=== PATIENT | female | born 1940 | race Caucasian/White ===

== ENCOUNTER 2016-10-24 08:00 | Outpatient (CLI) | payer MEDICARE, OTHER | END 2016-10-24 08:01 | disposition home or self-care (01) | DX: L30.9 Dermatitis, unspecified (principal) ==

== ENCOUNTER 2016-10-25 08:00 | Outpatient (CLI) | payer MEDICARE, OTHER | END 2016-10-25 23:59 | LOC: LAB.R 08:00 | PROVIDERS: ATTEND Physician Assistant | DX: R10.9 Unspecified abdominal pain (principal) | CPT/HCPCS: 87177; 87209 ==

== ENCOUNTER 2016-10-29 07:45 | Outpatient (CLI) | payer MEDICARE, OTHER | END 2016-10-29 07:46 | disposition home or self-care (01) | DX: L30.9 Dermatitis, unspecified (principal); R10.9 Unspecified abdominal pain ==

== ENCOUNTER 2017-12-18 19:33 | Outpatient (CLI) | payer MEDICARE, OTHER | END 2017-12-18 19:34 | disposition critical access hospital (66) | LOC: EMS 19:33 | PROVIDERS: ATTEND Surgery | DX: M25.532 Pain in left wrist (principal); W01.10XA Fall on same level from slipping, tripping and stumbling with subsequent striking against unspecified object, initial encounter | CPT/HCPCS: A0425; A0429 ==

== ENCOUNTER 2017-12-18 19:55 | Emergency (ER) | payer MEDICARE, OTHER ==
[2017-12-18 19:56] VITALS: BP 152/97
--- NOTE | 2017-12-18 20:52 | XRAY Report ---
Procedure Date: 12/18/2017 Accession Number: [id number] / [id number] Procedure: XR - Wrist 4 View LT CPT Code: FULL RESULT: EXAM: LEFT WRIST RADIOGRAPHY EXAM DATE: 12/18/2017 08:28 PM. CLINICAL HISTORY: Fall. COMPARISON: None. TECHNIQUE: 3 views. FINDINGS: Bones: Acute mildly displaced ulna styloid fracture. There is a comminuted impacted intra-articular fracture of the distal left radius metaphysis with 4 mm of lateral and 3 mm of dorsal displacement and mild dorsal angulation. Joints: Normal. No subluxations. Soft Tissues: Large amount of wrist swelling. IMPRESSION: 1. Acute impacted intra-articular and displaced fracture of the distal left radius metaphysis with 3 mm of dorsal and 4 mm lateral displacement and mild dorsal angulation. 2. Mildly displaced left ulna styloid fracture. 3. No dislocation. Large amount of swelling. RADIA
[2017-12-18] MEDS ORDERED: oxyCOD/ACETAMIN 5 MG/325 MG TABLET PO STA (20:55)
[2017-12-18] MEDS ORDERED: oxyCODONE/ACET 5/325 Prepack 4 PO STA (21:03)
--- NOTE | 2017-12-18 21:05 | ED Physician Documentation ---
PD HPI UPPER EXT INJURY - Stated complaint Stated Complaint: FALL/WRIST DEFORMITY - Chief complaint Chief Complaint: Ext Problem - History obtained from History obtained from: Patient - History of Present Illness Location: Left, Wrist Type of injury: Fall Where injury occurred: Home Timing - onset: Today Timing - details: Abrupt onset Improved by: Ice, Immobilization Worsened by: Moving, Palpating Similar symptoms before: Has not had sx before Recently seen: Not recently seen - Additonal information Additional information: Patient is a 77 year old female who is presenting to the emergency department for left wrist pain. patient states that her son was locked out of a house and she was trying to climb into a window and she fell and she blocked herself with her wrist. 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 : None HEENT: None Psych: None Musculoskeletal: None Derm: None - Past Surgical History Past Surgical History: No - Present Medications Home Medications: Ambulatory Orders Medication Instructions Recorded Confirmed Oxycodone HCl/Acetaminophen 1 - 2 each PO Q6H PRN #10 tablet 12/18/17 [Percocet 5-325 mg Tablet] - Allergies Allergies/Adverse Reactions: Allergies Allergy/AdvReac Type Severity Reaction Status Date / Time No Known Drug Allergies Allergy Verified 12/18/17 19:56 - Social History Does the pt smoke?: No Smoking Status: Never smoker Does the pt drink ETOH?: No Does the pt have substance abuse?: No - Immunizations Immunizations are current?: Yes PD ED PE NORMAL - Vitals Vital signs reviewed: Yes - General General: Alert and oriented X 3 - HEENT HEENT: Atraumatic - Cardiac Cardiac: RRR - Respiratory Respiratory: No respiratory distress - Abdomen Abdomen: Non distended - Neuro Neuro: Alert and oriented X 3 Eye Opening: Spontaneous PD ED PE EXPANDED - General General: Alert, In Pain - Cardiac Cardiac: Radial strong equal - Extremities Extremities: Left wrist (tenderness and swelling of distal wrist on lateral posterior region), Motor intact, Sensory intact, Vascular intact, Tendon intact Results - Vitals Vitals: Vital Signs - 24 hr 12/18/17 19:52 Temperature 37.5 C Heart Rate 107 H Respiratory 20 Rate Blood Pressure 152/97 H O2 Saturation 97 Oxygen O2 Source Room air - Rads (name of study) left wrist Radiology: Final report received, EMP read contemporaneously (mildly displaced distal radial fracture) PD MEDICAL DECISION MAKING - ED course Complexity details: reviewed old records, reviewed results, re-evaluated patient , considered differential, d/w patient, 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 patient had already been for imaging. results were reviewed and were consistent with a distal radial fracture. Case was discussed with Dr. Mendoza who stated patient should be placed in a splint and follow up in the office. Patient was treated with percocet for pain and placed in a volar splint. Patient was neurovascularly intact. patient required no further work up at this time and was stable for discharge with outpatient follow up. - Sepsis Event Vital Signs: Vital Signs - 24 hr 12/18/17 19:52 Temperature 37.5 C Heart Rate 107 H Respiratory 20 Rate Blood Pressure 152/97 H O2 Saturation 97 Oxygen O2 Source Room air Departure - Departure Disposition: 01 Home, Self Care Clinical Impression: Distal radial fracture Condition: Good Instructions: ED Fx Upper Ext Follow-Up: Ana Mendoza MD [Provider Admit Priv/Credential] - Tomorrow Prescriptions: Oxycodone HCl/Acetaminophen [Percocet 5-325 mg Tablet] 1 - 2 each PO Q6H PRN # 10 tablet PRN Reason: pain Comments: Your symptoms today are being caused by a wrist fracture. It has been placed in a splint. you will need to call the orthopedic office tomorrow to schedule a follow up appointment. you should ice your wrist at least 4 times a day. You should try to sleep with your wrist elevated. You should return to the emergency department for loss of feeling, loss of pulses, new worsening or uncontrollable symptoms. Discharge Date/Time: 12/18/17 21:28
== END 2017-12-18 21:28 | disposition home or self-care (01) ==
LOC: ED 19:55
DX: S52.92XA Unspecified fracture of left forearm, initial encounter for closed fracture (principal); W18.30XA Fall on same level, unspecified, initial encounter
CPT/HCPCS: 73110; 99283; A9270

== ENCOUNTER 2017-12-29 12:19 | Outpatient (CLI) | payer MEDICARE, OTHER | END 2017-12-29 12:20 | disposition home or self-care (01) | LOC: LAB 12:19 | PROVIDERS: ATTEND Orthopaedic Surgery | DX: Z01.812 Encounter for preprocedural laboratory examination (principal); S52.502A Unspecified fracture of the lower end of left radius, initial encounter for closed fracture | CPT/HCPCS: 87640 ==

== ENCOUNTER 2017-12-30 07:07 | Day surgery (SDC) | payer MEDICARE, OTHER ==
[2017-12-30] MEDS ORDERED: LACTATED RINGERS 1,000 ML IV ONE (07:25)
[2017-12-30] MEDS ORDERED: ceFAZolin 2 GM/50 ML 2 GM/50 ML BAG IV ONE (07:33)
[2017-12-30] MEDS ORDERED: PROPOFOL 200 MG/20 ML VIAL IVP ONE (08:45)
[2017-12-30] MEDS ORDERED: fentaNYL 100 MCG/2 ML VIAL IVP ONE (08:45)
[2017-12-30] MEDS ORDERED: MIDAZOLAM 2 MG/2 ML VIAL IVP ONE (08:45)
[2017-12-30] MEDS ORDERED: ROPIVACAINE 0.5% PF 20 ML VIAL EPI ONE (08:45)
[2017-12-30] MEDS ORDERED: DEXAMETHASONE 4 MG/ML VIAL IVP ONE (08:45)
[2017-12-30 11:54] VITALS: BP 173/102
--- NOTE | 2017-12-30 12:20 | OPERATIVE REPORT ---
DATE OF SERVICE: 12/30/2017 Physician: Ana Mendoza MD PREOPERATIVE DIAGNOSIS: Left distal radius closed comminuted intra-articular fracture with 3 predominant fracture fragments. POSTOPERATIVE DIAGNOSIS: Left distal radius closed comminuted intraarticular fracture with 3 predominant fracture fragments. PROCEDURE PERFORMED: Open reduction, internal fixation of left distal radial fracture. OPERATING SURGEON: Ana Mendoza MD ANESTHESIA: Julien Weinstein, an interscalene block with sedation. INDICATIONS FOR SURGERY: The patient is a 77-year-old female who sustained a ground level fall onto an outstretched left arm, causing an angulated unstable closed distal radial fracture with predominantly 3 fragments of the distal radius, and recommendation is for surgical repair by open reduction and internal fixation. FINDINGS AT SURGERY: The patient's fragmentation was confirmed at open surgery. The reduction achieved was near anatomic, and plate fixation was solid, with careful avoidance of screw overpenetration or penetration into the joint. DESCRIPTION OF OPERATIVE PROCEDURE: The patient was taken to the operating room. The patient had been given an interscalene block in PACU. Proceeded to the operating room where some sedation was given. She was prepared for surgery with sterile prepping and draping of the left upper extremity. After surgical timeout, C-arm was moved into position and the fracture was reduced. Once it was confirmed that reduction was a fairly easy maneuver to achieve, the open surgery proceeded with a volar radial 3-1/2 inch wrist incision overlying the flexor carpi radialis with dissection below the base of this tendon, down to fibers of pronator quadratus, which were elevated off the radius, exposing the distal radius and directly reducing it with application of a DVR Biomet plate. This was affixed to the distal radius through the oblong hole with a screw and positioned in place with a K-wire distally. Once a good reduction and alignment and position of plate were achieved, the locking screws were placed in the plate starting at the proximal shaft of the radius and then distally. Adequate fixation was gained, and it was very stable. C-arm imaging had been done throughout the case to ensure that the screws were in proper placement and length. Finally, at the end, the wound was flushed well. All the drill caps have been removed from the drill holes, and the closure was undertaken with interrupted Vicryl in the pronator quadratus, interrupted Vicryl subcutaneous, and Monocryl closure of skin. Sterile dressings were applied. The patient was placed in a well-padded below-elbow fiberglass splint, and taken to recovery room in stable condition. ESTIMATED BLOOD LOSS: Minimal. COMPLICATIONS: None. COUNTS: Sponge and needle counts correct. TD: 12/30/2017 11:09
== END 2017-12-30 07:08 | disposition home or self-care (01) ==
LOC: SDS 07:07
PROVIDERS: ATTEND Orthopaedic Surgery
PROC: 0PSJ04Z Reposition Left Radius with Internal Fixation Device, Open Approach (ICD-10-PCS; principal; 2017-12-30 08:15)
DX: S52.532A Colles' fracture of left radius, initial encounter for closed fracture (principal); Z86.14 Personal history of Methicillin resistant Staphylococcus aureus infection
CPT/HCPCS: 25609; C1713; J0690; J2795; J7120

== ENCOUNTER 2019-09-22 13:56 | Emergency (ER) | payer MEDICARE, OTHER ==
--- NOTE | 2019-09-22 14:06 | ED Physician Documentation ---
History of Present Illness - Stated complaint Stated Complaint: FINGER LAC - Chief complaint Chief Complaint: Laceration - History obtained from History obtained from: Patient - Additonal information Additional information: Patient is 78-year-old female is here today with a left Re-finger laceration. She states this happened at home. She had a mechanical fall and struck her finger against a car battery. She denies any further finger, hand, wrist, or elbow pain. She has full range of motion of her extremity without any gross deformities. She suffered 2 isolated lacerations at the fat pad of her left ring finger. She has full range of motion of her affected finger. Sensation is intact. She does not recall her last tetanus shot. Review of Systems Eyes: denies: Decreased vision Cardiac: denies: Chest pain / pressure Respiratory: denies: Dyspnea GI: denies: Abdominal Pain, Nausea, Vomiting Skin: reports: Laceration (s) Musculoskeletal: reports: Extremity pain, Other (see HPI). 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 : None HEENT: None Psych: None Musculoskeletal: None Derm: None - Past Surgical History Past Surgical History: No - Present Medications Home Medications: Ambulatory Orders Medication Instructions Recorded Confirmed Oxycodone HCl/Acetaminophen 1 - 2 each PO Q6H PRN #10 tablet 12/18/17 12/29/17 [Percocet 5-325 mg Tablet] - Allergies Allergies/Adverse Reactions: Allergies Allergy/AdvReac Type Severity Reaction Status Date / Time No Known Drug Allergies Allergy Verified 09/22/19 13:59 - Social History Does the pt smoke?: No Smoking Status: Never smoker Does the pt drink ETOH?: No Does the pt have substance abuse?: No - Immunizations Immunizations are current?: Yes PD ED PE NORMAL - Vitals Vital signs reviewed: Yes - General General: Alert and oriented X 3, No acute distress, Well developed/nourished - Back Back: Other (full range of motion. ) - Extremities Extremities: No deformity, Normal ROM s pain, Other (There are 2 lacerations located at the fat pad of the left ring finger. The proximal laceration is jagged and is approximately 2.5 cm. The distal laceration is approximately 0.5 cm in). No: No edema - Neuro Neuro: Alert and oriented X 3, No motor deficit, No sensory deficit Motor: None (He has full range of motion is able to form a symmetrical fist. No scaphoid tenderness.) Results - Vitals Vitals: Vital Signs - 24 hr 09/22/19 13:59 Temperature 36.4 C L Heart Rate 98 Respiratory 18 Rate Blood Pressure 190/87 H O2 Saturation 99 Oxygen O2 Source Room air Procedures - Laceration (location) Finger Complexity: Other (Wound was infiltrated with 1% lidocaine. The proximal wound was approximated with number six 5-0 nylon simple and ruptured sutures. The distal wound was approximated with 2, 5-0 simple interrupted sutures. Wound care was discussed. Patient tolerated this procedure well without any immediate complication.) PD MEDICAL DECISION MAKING - ED course Complexity details: other (Patient had symptomatic provement after wound was closed. We discussed care. She will have her sutures removed in 10 to 14 days. Seek care sooner for signs and symptoms of infection as needed.) Departure - Departure Disposition: 01 Home, Self Care Clinical Impression: Laceration Instructions: ED Laceration Sure Close Comments: Keep your wound clean with soap and water. Keep your wound dry for the initial 24 hours. You may apply an qens-fli-asmdryt antibiotic ointment such as bacitracin. Monitor wound for signs and symptoms of infection. Seek care if you develop any increased redness, warmth, pain, foul odor, or discharge. Otherwise have your sutures removed in 10 to 14 days.
[2019-09-22] MEDS ORDERED: TETANUS/DIPHTHERIA/PERTUSSIS 0.5 ML SYRINGE IM ONE (14:10)
[2019-09-22] MEDS ORDERED: BUFFERED LIDOCAINE 10 ML SYRINGE SUBQ STA (14:11)
[2019-09-22] MEDS ORDERED: BACITRACIN ZINC OINT 1 PACKET TOP STA (14:39)
[2019-09-22 14:55] VITALS: BP 164/77
== END 2019-09-22 14:58 | disposition home or self-care (01) ==
LOC: ED 13:56
DX: S61.215A Laceration without foreign body of left ring finger without damage to nail, initial encounter (principal); W19.XXXA Unspecified fall, initial encounter; W22.09XA Striking against other stationary object, initial encounter; Y93.E8 Activity, other personal hygiene
CPT/HCPCS: 12001; 90471; 90715; 99283; A9270

== ENCOUNTER 2019-10-01 10:22 | Emergency (ER) | payer MEDICARE, OTHER ==
[2019-10-01 10:31] VITALS: BP 146/70
--- NOTE | 2019-10-01 10:52 | ED Physician Documentation ---
PD HPI WOUND RECHECK - Stated complaint Stated Complaint: L STITCHES REMOVAL - Chief complaint Chief Complaint: Laceration - Histroy obtained from History obtained from: Patient - History of Present Illness Location: Left Hand (ring finger) Timing - onset: How many days ago (10) Associated symptoms: No: Fever, Redness, Swelling Recently seen: Emergency Dept (sutures 10 days ago) Review of Systems Constitutional: denies: Fever, Chills Neurologic: denies: Focal weakness, Numbness PD PAST MEDICAL HISTORY - Past Medical History Cardiovascular: None Respiratory: None Neuro: None Endocrine/Autoimmune: None GI: None 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 : None HEENT: None Psych: None Musculoskeletal: None Derm: None - Past Surgical History Past Surgical History: No Ortho: Other - Present Medications Home Medications: Ambulatory Orders Medication Instructions Recorded Confirmed No Known Home Medications 10/01/19 10/01/19 - Allergies Allergies/Adverse Reactions: Allergies Allergy/AdvReac Type Severity Reaction Status Date / Time No Known Drug Allergies Allergy Verified 10/01/19 10:31 - Social History Does the pt smoke?: No Smoking Status: Never smoker Does the pt drink ETOH?: No Does the pt have substance abuse?: No - Immunizations Immunizations are current?: Yes Immunizations: TDAP >10years/unknown - POLST Patient has POLST: No PD ED PE NORMAL - Vitals Vital signs reviewed: Yes - General General: Alert and oriented X 3, No acute distress, Well developed/nourished - Derm Derm: Normal color, Warm and dry - Extremities Extremities: Other (left index finger lac healing without signs of infection. some sppearance of thin skin at point of the V of the lac. Still looks likely viable.) Results - Vitals Vitals: Vital Signs - 24 hr 10/01/19 10:29 Temperature 36.8 C Heart Rate 88 Respiratory 16 Rate Blood Pressure 146/70 H O2 Saturation 100 Oxygen O2 Source Room air PD MEDICAL DECISION MAKING - ED course Complexity details: considered differential, d/w patient Departure - Departure Disposition: 01 Home, Self Care Clinical Impression: Visit for suture removal Condition: Stable Record reviewed to determine appropriate education?: Yes Comments: Allow the Steri-Strips to stay in place and dry for the next several days until they fall off. Then resume the normal ointment until the area is fully healed which may still be another week or 2. Recheck if signs of infection or other problems. Discharge Date/Time: 10/01/19 11:10
== END 2019-10-01 11:10 | disposition home or self-care (01) ==
LOC: ED 10:22
DX: S61.211D Laceration without foreign body of left index finger without damage to nail, subsequent encounter (principal); Z48.02 Encounter for removal of sutures
CPT/HCPCS: 99282

== ENCOUNTER 2023-03-26 08:45 | Outpatient (CLI) | payer MEDICARE, OTHER | END 2023-03-26 09:00 | disposition home or self-care (01) | LOC: LAB.N 08:45 | PROVIDERS: ATTEND Registered Nurse | DX: R30.0 Dysuria (principal) | CPT/HCPCS: 87086; 87181 ==

== ENCOUNTER 2023-03-27 08:57 | Emergency (ER) | payer MEDICARE, OTHER ==
[2023-03-27 09:12] VITALS: BP 173/84; O2SAT 97
--- NOTE | 2023-03-27 09:52 | XRAY Report ---
PROCEDURE: Toe(s) LT INDICATIONS: 1st toe pain TECHNIQUE: 3 views of the first toe(s) acquired. COMPARISON: None. FINDINGS: Bones: No fractures or dislocations. No suspicious bony lesions. Soft tissues: No suspicious soft tissue densities. IMPRESSION: No visualized acute fracture or dislocation. However, occult injury cannot be excluded. Recommend joe rt interval imaging follow-up in 7-10 days as clinically indicated for additional evaluation. Reviewed by: Sophia Huff MD on 03/27/2023 9:51 AM PDT Approved by: Sophia Huff MD on 03/27/2023 9:51 AM PDT Station ID: [id number]
--- NOTE | 2023-03-27 10:12 | ED Physician Documentation ---
PD HPI LOWER EXT INJURY - Stated complaint Stated Complaint: LT TOE INJ - Chief complaint Chief Complaint: Ext Problem - History obtained from History obtained from: Patient - Additional information Additional information: Patient is an 82-year-old female presenting for evaluation of left great toe pain for the past 2 days. She recalls hitting it against a plastic tote in December and reports part of the nail falling off at that time. Has since been regrowing. Reports some increased pain since last night but currently denies any significant pain other than when her shoes are on. She is currently on a cefdinir for urinary tract infection has also been on this for the past 2 days. She denies worsening of the redness. Denies recent known trauma. Denies history of gout or blood thinner use. 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 HEENT: None Psych: None Musculoskeletal: None Derm: None - Past Surgical History Past Surgical History: No Ortho: Other - Present Medications Home Medications: Ambulatory Orders Medication Instructions Recorded Confirmed No Known Home Medications 10/01/19 10/01/19 - Allergies Allergies/Adverse Reactions: Allergies Allergy/AdvReac Type Severity Reaction Status Date / Time No Known Drug Allergies Allergy Verified 03/27/23 09:09 - Social History Does the pt smoke?: No Smoking Status: Never smoker Does the pt drink ETOH?: No Does the pt have substance abuse?: No - Immunizations Immunizations are current?: Yes Immunizations: TDAP >10years/unknown - POLST Patient has POLST: No PD ED PE NORMAL - General General: Alert and oriented X 3, No acute distress, Well developed/nourished - HEENT HEENT: Atraumatic, Moist mucous membranes - Cardiac Cardiac: Strong equal pulses - Respiratory Respiratory: No respiratory distress - Extremities Extremities: Other (Redness and mild swelling to distal left great toe with no joint involvement, no fluctuance to suggest abscess, deformity to left toenail, no ingrown toenail, no tenderness on palpation of digit) Results - Vitals Vitals: Vital Signs - 24 hr 03/27/23 09:06 Temperature 37.1 C Heart Rate 102 H Respiratory 18 Rate Blood Pressure 173/84 H O2 Saturation 97 Oxygen O2 Source Room air PD Medical Decision Making - ED course ED course: Patient is an 82-year-old female presenting for evaluation of right great toe redness and swelling. She has a nail deformity from an injury a few months ago. X-ray was obtained which I reviewed I see no fracture or dislocation. Could be a cellulitis but there is no significant warmth. There is no fluctuance to suggest abscess. There is no tenderness noted on exam today. No joint involvement to suggest gout or septic joint. Encourage patient to continue her course of cefdinir that she is already on for urinary tract infection and close follow-up for any worsening symptoms. Patient is able to ambulate easily without any difficulty. Departure - Departure Disposition: 01 Home, Self Care Clinical Impression: Injury of left great toe Condition: Stable Follow-Up: Jahaira Pearl DPM [Provider Admit Priv/Credential] - Comments: Please continue with the antibiotic that you were started on. Your nail is growing in which may be causing some irritation but at this time I do not see an ingrown toenail that needs to be removed. If you are having any worsening pain please return to the emergency department. Otherwise I would recommend follow- up with your primary care or entry level sales associate. Your x-ray does not show a broken bone. Forms: PCP List Discharge Date/Time: 03/27/23 10:22
== END 2023-03-27 10:22 | disposition home or self-care (01) ==
LOC: ED 08:57
DX: S99.922A Unspecified injury of left foot, initial encounter (principal); X58.XXXA Exposure to other specified factors, initial encounter
CPT/HCPCS: 73660; 99282; 99283

== ENCOUNTER 2023-04-25 11:02 | Outpatient (CLI) | payer MEDICARE, OTHER | END 2023-04-25 11:03 | disposition home or self-care (01) | LOC: LAB.N 11:02 | PROVIDERS: ATTEND Registered Nurse | DX: R30.0 Dysuria (principal) | CPT/HCPCS: 87086 ==

== ENCOUNTER 2023-04-30 07:32 | Outpatient (CLI) | payer MEDICARE, OTHER | END 2023-04-30 07:33 | disposition home or self-care (01) | LOC: LAB.N 07:32 | PROVIDERS: ATTEND Registered Nurse | DX: R30.0 Dysuria (principal) | CPT/HCPCS: 87086 ==